=== PATIENT | female | born 1960 | race Caucasian/White ===

== ENCOUNTER → 2017-08-29 | Outpatient (CLI) | payer OTHER ==
[~2017-08-29] MED LIST: ACET-1256 PO; CLR10 PO; CRAN500C2 PO; DIPH-437 PO; IBUP-1050 PO; INUL6.5C PO; MULT1CHW18 PO; OXYM0.0592 NAE; PRLSR20 PO
--- NOTE | 2017-08-29 15:23 | MAMMOGRAPHY REPORT ---
BILATERAL DIGITAL SCREENING MAMMOGRAM TOMOSYNTHESIS WITH CAD: 08/29/2017 CLINICAL HISTORY: Routine screening. TECHNIQUE: Breast tomosynthesis in addition to standard 2D mammography was performed. Current study was also evaluated with a Computer Aided Detection (CAD) system. COMPARISON: Comparison is made to exams dated: 08/23/2016 mammogram, 03/29/2016 mammogram, 09/01/2015 mammogram, 08/18/2015 mammogram, 07/29/2014 mammogram, and 07/28/2013 mammogram - [facility]. BREAST COMPOSITION: There are scattered areas of fibroglandular density in both breasts. FINDINGS: No suspicious masses, calcifications, or areas of architectural distortion are noted in ei ther breast. There has been no significant interval change compared to prior exams. A linear scar ma rker denotes a scar on the left inferior breast. A few scattered bilateral benign-appearing calcific ations are not significantly changed. IMPRESSION: ACR BI-RADS CATEGORY 2: BENIGN There is no mammographic evidence of malignancy. A 1 year screening mammogram is recommended. The pa tient will receive written notification of the results. Approximately 10% of breast cancers are not detected with mammography. A negative mammographic report should not delay biopsy if a clinically suggestive mass is present. Karen Carvajal M.D. ah/:08/29/2017 14:36:34 Interchange Agent: Ky FERGUSON(R)(M), [facility] letter sent: Normal 1/2 BI-RADS Code: ACR BI-RADS Category 2: Benign
== END | disposition home or self-care (01) ==
LOC: C.MAMM 08:47
PROVIDERS: ATTEND Family Medicine
DX: Z12.31 Encounter for screening mammogram for malignant neoplasm of breast (principal)

== ENCOUNTER → 2018-06-17 | Outpatient (CLI) | payer BC ==
--- NOTE | 2018-06-17 16:23 | DIAGNOSTIC IMAGING REPORT ---
ABD/PELVIS NO IV OR ORAL CONT CT DOSE: 380.49 mGy.cm HISTORY: Flank pain LEFT FLANK PAIN TECHNIQUE: Multiaxial CT images of the abdomen and pelvis were performed without contrast. A dose lowering technique was utilized adhering to the principles of ALARA. COMPARISON STUDY: 05/15/2006 FINDINGS: Lung bases are clear. Liver spleen and pancreas are unremarkable. Multiple gallstones are present within the gallbladder lumen. Right kidney is negative for hydronephrosis. Multiple left renal calcifications. No evidence for renal hydronephrosis. Interval hysterectomy. Bladder is midline. No free fluid within the pelvic cul-de-sac. Nonobstructive bowel pattern. IMPRESSION: 1. Multiple nonobstructing left renal calcifications. 2. No evidence for an obstructing urinary tract calculus. 3. Interval hysterectomy. 4. Gallstones. The above report was generated using voice recognition software. It may contain grammatical, syntax or spelling errors. Electronically signed by: Brien Stubbs M.D. 06/17/2018 4:21 PM Dictated Date/Time: 06/17/2018 4:15 PM
== END | disposition home or self-care (01) ==
LOC: C.CTS 15:53
PROVIDERS: ATTEND Family Medicine
DX: R10.9 Unspecified abdominal pain (principal); Z86.39 Personal history of other endocrine, nutritional and metabolic disease; N28.89 Other specified disorders of kidney and ureter; K80.20 Calculus of gallbladder without cholecystitis without obstruction